=== PATIENT | female | born 1950 | race Caucasian/White ===

== ENCOUNTER 2019-09-21 21:27 | Emergency (ER) | payer OTHER ==
[2019-09-21] MEDS ORDERED: Lidocaine 1% 5ml 10 MG/ML VIAL IJ ONE (21:35)
[2019-09-21] MEDS ORDERED: DIPH,PERTUSS(ACELL),TET VAC/PF 0.5 ML DISP.SYRIN IM ONE (21:35)
--- NOTE | 2019-09-21 22:03 | ED Physician Documentation ---
General Adult - HISTORIAN Historian: patient - HPI Stated Complaint: Laceration to middle of 3rd digit, right hand, palmar side Chief Complaint: Laceration/Recheck/Suture Additional Information: 69 year old female presents to the ER with laceration to the right middle finger; palmar side. She states that she was slicing ham and cut the finger. Tetanus unknown. Onset: minutes Timing: still present Severity: mild Modifying Factors: knife cutting ham - ROS CONST: no problems EYES/ENT: none CVS/RESP: none GI/: none MS/SKIN/LYMPH: none NEURO/PSYCH: denies: tingling, numbness - PAST HX Past History: hypertension Other History: diabetes Type 2, other (GERD) Immunizations: UTD. denies: tetanus Allergies/Adverse Reactions: Allergies Allergy/AdvReac Type Severity Reaction Status Date / Time No Known Drug Allergies Allergy Verified 09/21/19 21:49 Home Medications: Ambulatory Orders Medication Instructions Recorded Amlodipine Besylate 5 mg PO DAILY u2 07/20/13 Aspirin Ec 81 mg PO DAILY u2 07/20/13 Benazepril Hcl 20 mg PO DAILY u2 07/20/13 Metformin Hcl 250 mg PO BID u2 07/20/13 Magnesium Oxide [Magnesium] 250 mg PO DAILY 09/21/19 Omeprazole 20 mg PO [id number] 09/21/19 - SOCIAL HX Smoking History: non-smoker Alcohol Use: none Drug Use: none - FAMILY HX Family History: No - VITAL SIGNS Vital Signs: Vital Signs Temp Pulse Resp BP Pulse Ox 78 18 164/89 96 09/21/19 21:28 09/21/19 21:28 09/21/19 21:28 09/21/19 21:28 - REVIEWED ASSESSMENTS Nursing Assessment Reviewed: Yes Vitals Reviewed: Yes Procedures Wound Location: upper extremity (right middle finger) Wound Length: 2 cm Wound's Depth, Shape: linear Wound Explored: no foreign body removed Betadine Prep?: Yes Anesthesia: 1% Lidocaine Volume of Anesthetic: 3 cc Wound Debrided: minimal Wound Repaired With: sutures Suture Size/Type: 6:0, nylon Number of Sutures: 6 Layer Closure?: No Sterile Dressing Applied?: Yes Progress: Patient tolerated well ED Results Lab/Radiology - Orders Orders: ED Orders Category Date Time Status Apply/change dressing NOW Care 09/21/19 21:35 Active Cleanse with NS and Chlorhexid 1T Care 09/21/19 21:35 Active Triple Antibiotic Ointment 1T Care 09/21/19 21:35 Active Diph,Pertuss(Acell),Tet Vac/Pf [Adacel] Med 09/21/19 21:35 Discontinued 0.5 ml IM .ONCE ONE Lidocaine 1% 5ml [Xylocaine] Med 09/21/19 21:35 Discontinued 50 mg IJ NOW ONE General Adult Physical Exam - PHYSICAL EXAM GENERAL APPEARANCE: no distress EENT: eye inspection normal, ENT inspection normal, pharynx normal, NIKA NECK: normal inspection, supple RESPIRATORY: breath sounds normal CVS: heart sounds normal BACK: normal inspection SKIN: warm/dry, normal color, other (2 cm lac to the right middle finger; medial palmar side) EXTREMITIES: non-tender, normal range of motion NEURO: oriented X3, CN's nml as tested, motor nml, sensation nml, mood/affect nml, cognition normal Discharge Clincal Impression: Finger laceration Referrals: Delphine Phipps MD [Primary Care Provider] - 2 Days Additional Instructions: Keep finger clean and dry Apply antibiotic ointment and dressing Watch for signs of infection; redness, swelling, drainage. Follow up with PCP in 7-10 days to have sutures removed Condition: Good Disposition: 01 HOME, SELF-CARE Decision to Admit: NO Decision Time: 22:06
[2019-09-21 22:43] VITALS: BP 144/72
== END 2019-09-21 22:18 | disposition home or self-care (01) ==
LOC: ED 21:27
DX: S61.212A Laceration without foreign body of right middle finger without damage to nail, initial encounter (principal); W26.0XXA Contact with knife, initial encounter
CPT/HCPCS: 12001; 99282